=== PATIENT | female | born 1945 | race Caucasian/White ===

== ENCOUNTER → 2019-01-08 | Outpatient (CLI) | payer MEDICARE, OTHER ==
[~2019-01-08] MED LIST: ASPIRIN325 PO; AUGMENTIN 875875 MG PO; BENADRYL25 MG PO; COLACE 100 MG100 MG PO; FLOMAX0.4 MG PO; METAMUCIL PAC1 UDPKT PO; MILK OF MA400 MG/5 M PO; MIRALAX17 G1 PO; MOBIC15 MG PO; OMEPRAZOLE20 M2 PO; ONDANSETRON HCL4 M2 PO; OXYCODONE HCL15 MG PO; ROXICODONE5 M2 PO; TENORMIN25 MG PO; TYLENOL325 MG PO; XARELTO10 MG PO
== END ==
LOC: M.ULTRA 15:27
DX: M79.604 Pain in right leg (principal); Z88.8 Allergy status to other drugs, medicaments and biological substances; Z88.5 Allergy status to narcotic agent; Z88.2 Allergy status to sulfonamides